=== PATIENT | male | born 1995 | race Caucasian/White ===

== ENCOUNTER 2018-05-05 01:45 | Emergency (ER) | payer OTHER ==
[~2018-05-05] VITALS: Ht 170.2 cm; Wt 102.1 kg
[~2018-05-05 01:45] MED LIST: MEDROL DOSPAK21 TA1 PO; MEDROLDOSEPACK PO; ROBAXIN 750 MG750 M1 PO
[2018-05-05] MEDS ORDERED: IBUPROFEN 800800 MG PO (05:12)
[2018-05-05] MEDS ORDERED: FLEXERIL PO (05:12)
[2018-05-05] MEDS ORDERED: LIORESAL 10 MG10 MG PO (05:12)
[2018-05-05 05:18] VITALS: BP 167/90
== END 2018-05-05 05:18 | disposition home or self-care (01) ==
LOC: M.ERS 01:45
DX: M54.5 Low back pain (principal); J45.909 Unspecified asthma, uncomplicated; F17.210 Nicotine dependence, cigarettes, uncomplicated

== ENCOUNTER 2019-07-08 15:42 | Emergency (ER) | payer OTHER ==
[~2019-07-08] VITALS: Ht 170.2 cm; Wt 119.3 kg
[~2019-07-08 15:42] MED LIST changes: +FLEXERIL PO; +IBUPROFEN 800800 MG PO; +LIORESAL 10 MG10 MG PO
[2019-07-08 16:29] LABS: URINE BILIRUBIN NEGATIVE (Negative); URINE BLOOD NEGATIVE (Negative); URINE CLARITY CLEAR; URINE COLOR YELLOW; URINE GLUCOSE-RANDOM NEGATIVE (Negative); URINE KETONES NEGATIVE (Negative); URINE LEUKOCYTES-REFLEX NEGATIVE (Negative); URINE NITRITE-REFLEX NEGATIVE (Negative); URINE PROTEIN NEGATIVE (Negative); URINE SPECIFIC GRAVITY >= 1.030 (1.005-1.030); URINE UROBILINOGEN 0.2 E.U./dl (0.2-1.0)
[2019-07-08 16:43] LABS: HEMATOCRIT 48.9 % (42.0-52.0); HEMOGLOBIN 16.8 gm/dL (14.0-18.0); MCH 29.8 pg (26.0-34.0); MCHC 34.3 g/dL (28.0-37.0); MCV 86.7 fL (80.0-100.0); MPV 8.8 fl. (7.2-11.1); NUCLEATED RBCS 0 /100WBC; PLATELET COUNT* 204 thou/uL (150-400); RBC 5.64 mil/uL (4.50-6.00); WBC 13.2 thou/uL (4.0-11.0)
[2019-07-08 16:58] LABS: CALCIUM 9.7 mg/dL (8.5-10.1); CREATININE 0.9 mg/dL (0.6-1.3); POTASSIUM 3.9 mmol/L (3.5-5.1)
[2019-07-08 17:02] LABS: TOTAL BILIRUBIN 0.7 mg/dL (<0.1-1.0); TOTAL PROTEIN 7.7 g/dL (6.4-8.2)
[2019-07-08 17:11] LABS: ABSOLUTE EOSINOPHILS 0.3 thou/uL (0.0-0.7); ABSOLUTE LYMPHOCYTES 4.1 thou/uL (0.8-5.3); ABSOLUTE MONOCYTES 0.7 thou/uL (0.0-1.2); ABSOLUTE NEUTROPHILS 8.2 thou/uL (1.6-8.1); PLATELET ESTIMATE ADEQUATE
[2019-07-08 17:40] VITALS: BP 127/70
[2019-07-08] MEDS ORDERED: BENTYL 20 MG TA20 M1 PO (17:41)
== END 2019-07-08 17:40 | disposition home or self-care (01) ==
LOC: M.ERS 15:42
PROVIDERS: Nurse Practitioner Family
DX: R10.31 Right lower quadrant pain (principal); J45.909 Unspecified asthma, uncomplicated; F17.210 Nicotine dependence, cigarettes, uncomplicated